=== PATIENT | female | born 1985 | race Caucasian/White ===

== ENCOUNTER 2020-05-04 10:00 | Inpatient (IN) | payer BC, MEDICAID ==
[~2020-05-04] VITALS: Ht 157.5 cm; Wt 78.0 kg
[~2020-05-04 10:00] MED LIST: FERR-82 PO; PREN-154 PO
[2020-05-11] MEDS ORDERED: CALDOLOR 800MG+NS 250ML 250 ML IV PRN (06:00)
[2020-05-11] MEDS ORDERED: CITRIC ACID/SODIUM CITRATE 30 ML UDCUP PO PRN (06:00)
[2020-05-11] MEDS ORDERED: METOCLOPRAMIDE 10 MG/2 ML VIAL IVP PRN (06:00)
[2020-05-11] MEDS ORDERED: LACTATED RINGERS 1000ML 1,000 ML IV SCH (06:00)
[2020-05-11] MEDS ORDERED: CEFAZOLIN SODIUM 1 GM VIAL IVP PRN (06:00)
[2020-05-11 06:30] LABS: HEMATOCRIT 33.7 % (36-48); MEAN CORPUSCULAR HGB CONC 32.6 g/dL (32.0-36.0); MEAN CORPUSCULAR VOLUME 91.8 fL (79-99); RED BLOOD CELL COUNT(AUTO) 3.67 MIL/uL (4.00-5.50); RED CELL DISTRIBUTION WIDTH 14.6 % (11.0-15.5); WHITE BLOOD COUNT (AUTO) 9.6 K/uL (4.8-10.8)
[2020-05-11] MEDS ORDERED: OXYTOCIN-LR 20 UNITS/1000 ML 2,000 ML IV ONE (07:07)
[2020-05-11] MEDS ORDERED: MORPHINE PF 100MG/10ML AMP IV ONE (07:12)
[2020-05-11] MEDS ORDERED: EPINEPHRINE PF 1MG AMP ONE (07:12)
[2020-05-11] MEDS ORDERED: ONDANSETRON 4MG INJ ONE (07:20)
[2020-05-11 07:45] LABS: APPEARANCE,URINE Clear (CLEAR); BILIRUBIN,URINE Negative (NEGATIVE); COLOR,URINE Yellow (YELLOW); GLUCOSE, URINE (UA) Negative (NEGATIVE); KETONES,URINE Negative (NEGATIVE); LEUKOCYTE ESTERASE ,URINE Trace (NEGATIVE); NITRATE,URINE Negative (NEGATIVE); OCCULT BLOOD,URINE Negative (NEGATIVE); PH,URINE 7.5 (5.0-8.0); PROTEIN,URINE Negative (NEGATIVE); UROBILINOGEN,URINE 0.2 mg/dL (0.2-1.0)
[2020-05-11] MEDS ORDERED: OXYTOCIN-LR 20 UNITS/1000 ML 1,000 ML IV SCH (07:45)
[2020-05-11 08:26] LABS: BACTERIA,URINE Rare /HPF (None Seen); RBC,URINE 0-1 /HPF (0-1); SQUAMOUS EPITHELIAL CELL,UR Moderate /HPF (0-2)
[2020-05-11] MEDS ORDERED: METHYLERGONOVINE MALEATE 0.2 MG/1 ML ML ONE (08:52)
[2020-05-11] MEDS ORDERED: MISOPROSTOL 200 MCG TABLET ONE (08:52)
[2020-05-11] MEDS ORDERED: TRANEXAMIC ACID 1000MG/10ML ONE (08:54)
[2020-05-11] MEDS ORDERED: GLYCOPYRROLATE 1 MG/5 ML SYRINGE ONE (09:16)
[2020-05-11] MEDS ORDERED: EPHEDRINE SULFATE 50 MG/ML AMPULE ONE (09:17)
[2020-05-11] MEDS ORDERED: LANOLIN 30GM OINTMENT TP PRN (10:00)
[2020-05-11] MEDS ORDERED: MEPERIDINE-PF 75 MG/ML SYG IM PRN (10:00)
[2020-05-11] MEDS ORDERED: DEXTROSE 5 %-0.45 % NACL 1,000 ML IV PRN (10:00)
[2020-05-11] MEDS ORDERED: DIPHENHYDRAMINE HCL 25 MG CAPSULE PO PRN (10:00)
[2020-05-11] MEDS ORDERED: BISACODYL 10 MG SUPP.RECT RC PRN (10:00)
[2020-05-11] MEDS ORDERED: IBUPROFEN 600 MG TABLET PO PRN (10:00)
[2020-05-11] MEDS ORDERED: ACETAMINOPHEN 500 MG TABLET PO PRN (10:00)
[2020-05-11] MEDS ORDERED: PROMETHAZINE HCL 25 MG/ML 1ML AMPULE IM PRN (10:00)
[2020-05-11] MEDS ORDERED: 0.9%NACL 10ML VIAL IVP PRN (10:00)
[2020-05-11] MEDS ORDERED: MEASLES/MUMPS/RUBELLA VACCINE, LIVE 0.5 ML/VIAL SQ SCH (10:00)
[2020-05-11] MEDS ORDERED: OXYTOCIN-LR 20 UNITS/1000 ML 1,000 ML IV PRN (10:00)
[2020-05-11] MEDS ORDERED: HYDROCODONE/ACETAMINOPHEN 5/325 MG TAB PO PRN (10:00)
[2020-05-11] MEDS: IBUPROFEN 800 MG TAB PO SCH ×2 (10:00→18:00)
[2020-05-11 11:35] VITALS: BP 106/66
[2020-05-11] MEDS ORDERED: EPHEDRINE SULFATE 50 MG/ML AMPULE IVP PRN (13:30)
[2020-05-11] MEDS ORDERED: ONDANSETRON 4MG INJ IVP PRN (13:30)
[2020-05-11] MEDS ORDERED: NALOXONE HCL 0.4 MG/1 ML ML IVP PRN ×2 (13:30)
[2020-05-11] MEDS ORDERED: DiphenhydrAMINE HCL 50 MG/ML VIAL IVP PRN (13:30)
[2020-05-11 15:35] VITALS: BP 99/46
[2020-05-11] MEDS: CALDOLOR 800MG+NS 250ML 250 ML IV SCH (17:53)
[2020-05-11] MEDS: DIPH,PERTUSS(ACELL),TET VAC/PF 0.5 ML VIAL IM SCH (17:55)
[2020-05-11] MEDS ORDERED: FLU VACC QS2020-21(6MOS UP)/PF 60 MCG/0.5 ML ML IM ONE (18:00)
[2020-05-11 18:55] VITALS: BP 104/64
[2020-05-11] MEDS: SIMETHICONE 80 MG TAB.CHEW PO PRN (21:41)
[2020-05-11] MEDS: DOCUSATE SODIUM 100 MG CAP PO SCH (21:41)
[2020-05-11 23:04] VITALS: BP 91/58
[2020-05-12] MEDS: ACETAMINOPHEN WITH CODEINE 1 TAB TAB PO PRN ×3 (00:28→16:29)
[2020-05-12] MEDS: CALDOLOR 800MG+NS 250ML 250 ML IV SCH (01:58)
[2020-05-12] MEDS: IBUPROFEN 800 MG TAB PO SCH ×2 (02:00→09:28)
[2020-05-12 03:07] VITALS: BP 91/49
[2020-05-12 06:12] LABS: HEPATITIS Bs ANTIGEN SCREEN P Negative (Negative)
[2020-05-12 07:35] VITALS: BP 91/52
[2020-05-12] MEDS ORDERED: LIDOCAINE 5% TOPICAL PATCH TP SCH (09:00)
[2020-05-12] MEDS: DOCUSATE SODIUM 100 MG CAP PO SCH (09:27)
[2020-05-12] MEDS: SIMETHICONE 80 MG TAB.CHEW PO PRN (09:27)
[2020-05-12] MEDS: DIPH,PERTUSS(ACELL),TET VAC/PF 0.5 ML VIAL IM SCH (10:00)
[2020-05-12 11:19] VITALS: BP 95/50
[2020-05-12 16:18] VITALS: BP 96/55
== END 2020-05-12 17:05 | disposition home or self-care (01) | DRG 788 ==
LOC: LDH 05-11 05:39 → WSH 05-11 11:30
PROVIDERS: ADMIT Obstetrics & Gynecology; ATTEND Obstetrics & Gynecology
PROC: 10D00Z1 Extraction of Products of Conception, Low, Open Approach (ICD-10-PCS; principal; 2020-05-11 07:30)
DX: O34.211 Maternal care for low transverse scar from previous cesarean delivery (principal); Z3A.39 39 weeks gestation of pregnancy; Z37.0 Single live birth; Z20.828 Contact with and (suspected) exposure to other viral communicable diseases
CPT/HCPCS: 36415; 59025; 59510; 81001; 81003; 85027; 86592; 86850; 86900; 86901; 87340; 90715; A4344; G0378; J0171; J0690; J1741; J2210; J2274; J2405; J2590; J3490; J7120; U0003

== ENCOUNTER 2020-05-08 22:39 | Observation (INO) | payer BC, MEDICAID ==
[~2020-05-08] VITALS: Ht 160 cm; Wt 78.9 kg
[2020-05-08 23:22] LABS: APPEARANCE,URINE Clear (CLEAR); BILIRUBIN,URINE Negative (NEGATIVE); COLOR,URINE Yellow (YELLOW); GLUCOSE, URINE (UA) Negative (NEGATIVE); KETONES,URINE Negative (NEGATIVE); LEUKOCYTE ESTERASE ,URINE Negative (NEGATIVE); NITRATE,URINE Negative (NEGATIVE); OCCULT BLOOD,URINE Negative (NEGATIVE); PROTEIN,URINE Negative (NEGATIVE); UROBILINOGEN,URINE 0.2 mg/dL (0.2-1.0)
== END 2020-05-09 00:15 | disposition home or self-care (01) ==
LOC: EDH 22:39 → LDH 22:40
PROVIDERS: ADMIT Obstetrics & Gynecology; ATTEND Obstetrics & Gynecology
DX: O62.9 Abnormality of forces of labor, unspecified (principal); O09.523 Supervision of elderly multigravida, third trimester; O34.219 Maternal care for unspecified type scar from previous cesarean delivery; O48.0 Post-term pregnancy; Z3A.40 40 weeks gestation of pregnancy
CPT/HCPCS: 59025; 81003; 99283; G0378